=== PATIENT | female | born 2005 | race Caucasian/White ===

== ENCOUNTER 2024-05-12 14:29 | Emergency (ER) | payer SELFPAY ==
[2024-05-12] MEDS ORDERED: Ibuprofen 800 MG TAB ONE (15:23)
[2024-05-12] MEDS ORDERED: Ondansetron ODT 4 MG TAB ONE (15:24)
[2024-05-12] MEDS ORDERED: Acetaminophen 500 MG TAB ONE (15:24)
[2024-05-12 15:29] LABS: Pregnancy Test - Urine (BHCG) Negative (Negative); Pregu Control Background? CLEAR/WHITE (CLR/WHITE); Pregu Control Bar Appear? YES (CONTROL BAR)
== END 2024-05-12 16:29 | disposition home or self-care (01) ==
LOC: MADERS 14:29
DX: K52.9 Noninfective gastroenteritis and colitis, unspecified (principal); R07.89 Other chest pain; F17.290 Nicotine dependence, other tobacco product, uncomplicated
CPT/HCPCS: 71046; 81025; 87081; 87428; 87430; 93005; Q0162